=== PATIENT | female | born 1975 | race Caucasian/White ===

== ENCOUNTER 2018-10-06 10:05 | Observation (INO) | payer SELFPAY ==
[~2018-10-06] VITALS: Ht 167.6 cm; Wt 87.3 kg
[2018-10-06] VITALS (10 sets, daily range): BP systolic 118–144; BP diastolic 55–76
[2018-10-06 10:26] LABS: BASOPHILS % 0.3 % (0.0-1.0); EOSINOPHILS # (AUTO) 0.1 (0.0-0.4); EOSINOPHILS % 1.7 % (0.0-6.0); HEMATOCRIT 23.3 % (34.2-44.1); LYMPHOCYTES # (AUTO) 1.1 (1.0-3.2); LYMPHOCYTES % 18.3 % (18.0-39.1); MEAN CORPUSCULAR HEMOGLOBIN 17.8 pg (28-32); MONOCYTES # (AUTO) 0.3 (0.2-0.8); MONOCYTES % 5.4 % (4.4-11.3); NEUTROPHILS # (AUTO) 4.4 (2.1-6.9); PLATELET COUNT 166 x10e3/uL (140-360); RED BLOOD COUNT 3.53 x10e6/uL (3.6-5.1); RED CELL DISTRIBUTION WIDTH 26.5 % (11.7-14.4)
[2018-10-06 10:29] LABS: HEMOGLOBIN 6.3 g/dL (12.0-16.0)
[2018-10-06 10:35] LABS: BILIRUBIN,URINE NEGATIVE (NEGATIVE); CLARITY,URINE SL CLOUDY (CLEAR); COLOR,URINE YELLOW (YELLOW); KETONES,URINE NEGATIVE (NEGATIVE); LEUKOCYTE ESTERASE ,URINE TRACE (NEGATIVE); NITRITE,URINE NEGATIVE (NEGATIVE); PROTEIN,URINE DIPSTICK NEGATIVE (NEGATIVE); URINE UROBILINOGEN 0.2 mg/dL (0.2 - 1)
[2018-10-06 10:44] LABS: PREGNANCY TEST, URINE NEGATIVE (NEGATIVE)
[2018-10-06] MEDS ORDERED: ENALAPRILAT IV INJ 1.25 MG/ML VIAL IV PRN (10:45)
[2018-10-06] MEDS ORDERED: FUROSEMIDE INJ 10 MG/ML 2 ML VIAL IV ONE ×2 (10:45→16:30)
[2018-10-06] MEDS ORDERED: DIPHENHYDRAMINE HCL INJ 50 MG/ML VIAL IV ONE (10:45)
[2018-10-06] MEDS ORDERED: CLONIDINE HCL 0.1 MG TAB PO PRN (10:45)
[2018-10-06] MEDS ORDERED: ONDANSETRON HCL INJ 2MG/ML 2ML 2 MG/ML VIAL IV PRN (10:45)
[2018-10-06] MEDS ORDERED: DIPHENHYDRAMINE HCL INJ 50 MG/ML VIAL IV PRN (10:45)
[2018-10-06 10:47] LABS: BACTERIA,URINE MANY /HPF
[2018-10-06 10:48] LABS: ALANINE AMINOTRANSFERASE 11 IU/L (0-55); ALBUMIN 3.4 g/dL (3.5-5.0); ALBUMIN/GLOBULIN RATIO 0.9 (0.8-2.0); ALKALINE PHOSPHATASE 58 IU/L (40-150); BLOOD UREA NITROGEN 6 mg/dL (7-26); BUN/CREATININE RATIO 10 (6-25); CALCIUM 8.4 mg/dL (8.4-10.2); CARBON DIOXIDE 20 mmol/L (22-29); CHLORIDE 108 mmol/L (98-107); CREATININE, SERUM 0.63 mg/dL (0.57-1.11); EST GLOMERULAR FILTRATION RATE > 60 ML/MIN (60-); GLUCOSE 112 mg/dL (74-118); SODIUM 137 mmol/L (136-145)
[2018-10-06 10:48] LABS: AMORPHOUS SEDIMENT,URINE FEW (FEW); EPITHELIAL CELLS,URINE MANY /LPF
[2018-10-06 11:07] LABS: % IRON SATURATION 2 % (15-50); IRON 13 ug/dL (50-170); TOTAL IRON BINDING CAPACITY 533 ug/dL (261-478); TRANSFERRIN 381 mg/dL (180-382)
[2018-10-06] MEDS ORDERED: ACETAMINOPHEN 325 MG TAB PO ONE (11:30)
--- NOTE | 2018-10-06 11:35 | NUR ---
RECEIVED PT FROM ER. [facility]. BED IS AT THE LOWEST POSITION AND LOCKED. CALL LIGHT WITH IN EASY REACH. INSTRUCTED PT TO USE CALL LIGHT FOR ANY NEEDS. PT DENIES NEEDS AT THIS TIME.
[2018-10-06 11:36] LABS: FERRITIN < 1.00 ng/mL (4.63-204.00)
[2018-10-06 11:42] LABS: ELLIPTOCYTE, RBC SLIGHT; HYPOCHROMASIA MODERATE; OVALOCYTES FEW; PLATELET ESTIMATE ADEQUATE; PLATELET MORPHOLOGY COMMENT NORMAL; POLYCHROMASIA FEW; TEAR DROP CELLS FEW
[2018-10-06 11:43] LABS: RBC MORPHOLOGY COMMENT ABNORMAL
--- NOTE | 2018-10-06 11:57 | NUR ---
CAMERON BUCK AND INFORMED PT STATUS.
--- NOTE | 2018-10-06 12:00 | NUR ---
PER THE PT, SHE IS NOT TAKING ANY HOME MEDS.
[2018-10-06] MEDS: SODIUM CHLORIDE 0.9% 1000ML 1,000 ML IV SCH ×2 (12:11→23:52)
[2018-10-06] MEDS ORDERED: SODIUM CHLORIDE 0.9% 250ML 250 ML ONE ×2 (13:20→22:17)
--- NOTE | 2018-10-06 13:25 | NUR ---
BLOOD TRANSFUSION STARTED. INFORMED CONSENT SIGNED BY THE PT. 2 RN'S VERIFIED THE TRANSFUSION. PT VERBALIZED UNDERSTANDING. PT DENIES NEEDS AT THIS TIME.
--- NOTE | 2018-10-06 15:50 | NUR ---
BLOOD TRANSFUSION COMPLETED. PT IS AAOX4. NO DISTRESS OR REACTIONS NOTED. PT DENIES NEEDS AT THIS TIME.
--- NOTE | 2018-10-06 16:00 | NUR ---
DR. BUCK AT BEDSIDE TO SEE THE PT.
--- NOTE | 2018-10-06 17:15 | History and Physical ---
CHIEF COMPLAINT: The patient was found to have extremely low hemoglobin in office blood test 2 days back. HISTORY OF PRESENT ILLNESS: A 43-year-old pleasant female with past medical history of no significant medical problems, was admitted at [facility] this morning with above complaints. The patient was seen in my office for the first time last week for a routine checkup. The patient had a routine blood test done, which showed hemoglobin of 6.0 and hence the patient was advised to go to ER. The patient came to the emergency room this morning. The patient was found to have repeat hemoglobin of 6.3, admitted to hospital for further care and treatment. Complains of fatigue, tiredness for last few months. Complains of heavy menstrual cycles for last 12 years. No chest pain. No shortness of breath. No nausea, vomiting, or diarrhea. No abdominal pain. No loss of consciousness. No palpitations. No headaches. No hematemesis. No melena. No hematuria. No dysuria. No fever. No cough. No witnessed seizures. PAST MEDICAL HISTORY: 1. Chronic low back pain. 2. Scoliosis. MEDICATIONS: None. ALLERGIES: LYRICA. SOCIAL HISTORY: No smoking. No alcohol. No illicit drug use. FAMILY HISTORY: Noncontributory. REVIEW OF SYSTEMS: As per HPI. PHYSICAL EXAMINATION: GENERAL: The patient is alert, awake, and oriented x3, in no apparent distress, lying in bed. VITAL SIGNS: Temperature is 98, pulse rate is 70 per minute, respiratory rate is 18 per minute, blood pressure is 126/60, and saturation is 100%. No cyanosis. No icterus. Pallor plus. HEENT: Normocephalic, atraumatic. PERRLA plus. NECK: Soft, supple. No JVD. No carotid bruit. No lymphadenopathy. LUNGS: Air entry bilaterally equal. HEART: S1 and S2 present. No murmur, gallop, or rub. ABDOMEN: Soft, nontender. Bowel sounds plus. COMMISSIONING SPECIALIST: Alert, awake, and oriented x3. Moves extremities. No focal deficits. LABORATORY DATA: White count of 5.9, hemoglobin 6.3, hematocrit 23.3, platelets 156. Sodium 137, potassium 4.0, chloride 108, bicarb 20, BUN 6, creatinine 0.6. LFTs are noted. Total iron 13. TIBC 533. Ferritin less than 1. Transferrin 381. HCG qualitative negative. ASSESSMENT: 1. Severe symptomatic iron deficiency anemia. 2. History of severe menorrhagia. PLAN: 1. Admit the patient to medical floor. 2. Transfuse 2 units of packed RBCs today. The patient already received 1 unit today. One unit of packed RBC pending. 3. Serial H and H. 4. Scientific Process Operator consult with Dr. Ramirez. 5. Hematology consult with Dr. Etienne. 6. Further care and treatment as per clinical course of the patient in the hospital. Discussed with the patient at length. MD BAO Sewell/RASHMI /[id number]
--- NOTE | 2018-10-06 17:30 | NUR ---
PAGED DR. MOTA. PER THE DR, START DECADRON AND INFED AFTER THE SECOND UNIT OF BLOOD TRANSFUSION.
[2018-10-06 17:32] LABS: BASOPHILS % 0.4 % (0.0-1.0); EOSINOPHILS # (AUTO) 0.1 (0.0-0.4); EOSINOPHILS % 1.6 % (0.0-6.0); HEMATOCRIT 25.5 % (34.2-44.1); HEMOGLOBIN 7.2 g/dL (12.0-16.0); LYMPHOCYTES # (AUTO) 1.2 (1.0-3.2); LYMPHOCYTES % 21.9 % (18.0-39.1); MEAN CORPUSCULAR HEMOGLOBIN 19.5 pg (28-32); MEAN CORPUSCULAR HGB CONC 28.2 g/dL (31-35); MEAN CORPUSCULAR VOLUME 68.9 fL (81-99); MONOCYTES # (AUTO) 0.4 (0.2-0.8); MONOCYTES % 6.9 % (4.4-11.3); NEUTROPHILS # (AUTO) 3.9 (2.1-6.9); NEUTROPHILS % 68.8 % (38.7-80.0); PLATELET COUNT 146 x10e3/uL (140-360); RED CELL DISTRIBUTION WIDTH 26.3 % (11.7-14.4)
[2018-10-06] MEDS: FAMOTIDINE 20 MG/2 ML VIAL IV SCH (17:53)
--- NOTE | 2018-10-06 17:55 | NUR ---
PT OFF UNIT FOR PROCEDURE IN SAFE CONDITION.
[2018-10-06] MEDS ORDERED: FAMOTIDINE 20 MG/2 ML VIAL IV ONE (17:56)
[2018-10-06] MEDS ORDERED: DEXAMETHASONE PHOS 10MG INJ 20 MG in SODIUM CHLORIDE 0.9% 50ML 50 ML IV ONE (18:00)
[2018-10-06] MEDS ORDERED: FAMOTIDINE INJ 20 MG in SODIUM CHLORIDE 0.9% 50ML 50 ML IV ONE (18:00)
[2018-10-06] MEDS ORDERED: DIPHENHYDRAMINE HCL INJ 25 MG in SODIUM CHLORIDE 0.9% 50ML 50 ML IV ONE (18:30)
--- NOTE | 2018-10-06 18:30 | NUR ---
PT BACK TO UNIT AFTER PROCEDURE. PT DENIES NEEDS AT THIS TIME.
--- NOTE | 2018-10-06 18:55 | NUR ---
PAGED DR. GODDARD REGARDING PT ULTRA SOUND ORDER
--- NOTE | 2018-10-06 19:00 | NUR ---
BEDSIDE SHIFT REPORT GIVEN TO THE ASSISTANT PROFESSOR OF THEATER RN. PT DENIED FURTHER NEEDS.
[2018-10-06] MEDS ORDERED: IRON DEXTRAN INJ 50 MG in SODIUM CHLORIDE 0.9% 100 ML IV ONE (19:30)
[2018-10-06] MEDS ORDERED: IRON DEXTRAN INJ 500 MG in SODIUM CHLORIDE 0.9% 500ML 500 ML IV PRN (21:00)
--- NOTE | 2018-10-06 21:18 | Diagnostic Imaging Report ---
EXAM: CT Abdomen and Pelvis WITH contrast INDICATION: Anemia COMPARISON: None. TECHNIQUE: Abdomen and pelvis were scanned utilizing a multidetector helical scanner from the lung base to the pubic symphysis after administration of IV contrast. Coronal and sagittal reformations were obtained. Routine protocol was performed. Scan was performed when during portal venous phase. IV CONTRAST: 100 mL of Isovue 370 ORAL CONTRAST: None COMPLICATIONS: None RADIATION DOSE: Total DLP: 728 mGy*cm Estimated effective dose: (DLP x 0.015 x size factor) mSv CTDIvol has been reviewed. It is below the limits set by the Radiation Protocol Committee (RPC). Dose modulation, iterative reconstruction, and/or weight based adjustment of the mA/kV was utilized to reduce the radiation dose to as low as reasonably achievable. FINDINGS: LINES and TUBES: None. LOWER THORAX: Unremarkable HEPATOBILIARY: No focal hepatic lesions. No biliary ductal dilation. GALLBLADDER: No radio-opaque stones or sludge. No wall thickening. Contracted. SPLEEN: No splenomegaly. PANCREAS: No focal masses or ductal dilatation. ADRENALS: No adrenal nodules KIDNEYS/URETERS: Kidneys enhance symmetrically. No hydronephrosis. No cystic or solid mass lesions. No stones. GI TRACT: No abnormal distention, wall thickening, or evidence of bowel obstruction. Ingested material occupies the stomach lumen. Colonic diverticulosis without diverticulitis. Appendix is normal. PELVIC ORGANS/BLADDER: Enlarged uterus with multiple fibroids, and slightly distorted endometrial stripe and possibly a 1.9 cm submucosal fibroid at the uterine fundus (series 300, image 78). Bilateral fallopian tube closure devices. No adnexal masses. LYMPH NODES: No lymphadenopathy. VESSELS: Unremarkable. PERITONEUM / RETROPERITONEUM: No free air or fluid. BONES: There are degenerative changes in the lumbar spine. SOFT TISSUES: There is a fat containing para-umbilical hernia. IMPRESSION: 1. Multi fibroid uterus, possibly with a submucosal fibroid. 2. Colonic diverticulosis without diverticulitis. Signed by: Kodi Landon DO on 10/06/2018 9:15 PM
[2018-10-06] MEDS: IBUPROFEN 400 MG TAB PO PRN (22:13)
--- NOTE | 2018-10-06 22:17 | Consultation ---
DATE OF CONSULTATION: HISTORY OF PRESENT ILLNESS: Thank you very much for asking me to see this 43-year-old, whom I had delivered her baby 12 years ago. She is complaining of heavy vaginal bleeding for the last 12 days, getting worse with irregular periods since she had her tubal ligation 12 years ago. Before her tubal ligation, she had been on control pills and was not complaining of heavy periods, however, now her periods are heavy with clots. She also complained of dysmenorrhea. PAST MEDICAL HISTORY: Not significant. PAST SURGICAL HISTORY: She had tubal ligation. SOCIAL HISTORY: Denies smoking, alcohol, or drug abuse. MEDICATIONS: She is on no medications. ALLERGIES: LYRICA. REVIEW OF SYSTEMS: She does not complain of bowel movement problem, urology problem, cerebrovascular, musculoskeletal, hematological, or dermatological problem. ASSESSMENT AND PLAN: A 43-year-old with heavy periods. We will proceed with having pelvic ultrasound, also thyroid function tests, hysteroscopy, dilation and curettage to rule out uterine cancer. Risks, benefits, and complications were all explained. We will schedule that tomorrow morning. Ramona Ramirez MD DD/RASHMI /[id number] cc: Mindi Abebe MD
--- NOTE | 2018-10-06 23:00 | NUR ---
STARTED 2ND BLOOD TRANSFUSION. VERIFIED BLOOD WITH 2ND NURSE. VITAL SIGN STABLE AT THIS TIME. NO ACUTE DISTRESS NOTED. NO SIGN AND SYMPTOM OF REACTION. CONTINUE TO MONITOR CLOSELY
[2018-10-07] VITALS: BP 144/84
--- NOTE | 2018-10-07 01:00 | NUR ---
BLOOD TRANSFUSION COMPLETED. NO S/S OF REACTION NOTED. VITAL SIGN STABLE AT THIS TIME. CONTINUE TO MONITOR CLOSELY
[2018-10-07 04:00] VITALS: BP 143/78
[2018-10-07 05:25] LABS: BASOPHILS % 0.2 % (0.0-1.0); HEMATOCRIT 31.6 % (34.2-44.1); HEMOGLOBIN 8.9 g/dL (12.0-16.0); LYMPHOCYTES # (AUTO) 0.4 (1.0-3.2); LYMPHOCYTES % 4.9 % (18.0-39.1); MEAN CORPUSCULAR HEMOGLOBIN 19.6 pg (28-32); MEAN CORPUSCULAR HGB CONC 28.2 g/dL (31-35); MEAN CORPUSCULAR VOLUME 69.6 fL (81-99); MONOCYTES % 0.5 % (4.4-11.3); NEUTROPHILS # (AUTO) 8.2 (2.1-6.9); NEUTROPHILS % 93.4 % (38.7-80.0); PLATELET COUNT 185 x10e3/uL (140-360); RED BLOOD COUNT 4.54 x10e6/uL (3.6-5.1); RED CELL DISTRIBUTION WIDTH 25.5 % (11.7-14.4)
[2018-10-07 05:47] LABS: ALANINE AMINOTRANSFERASE 12 IU/L (0-55); ALBUMIN 3.7 g/dL (3.5-5.0); ALBUMIN/GLOBULIN RATIO 0.9 (0.8-2.0); ALKALINE PHOSPHATASE 64 IU/L (40-150); ANION GAP 12.3 mmol/L (8-16); BLOOD UREA NITROGEN 8 mg/dL (7-26); BUN/CREATININE RATIO 11 (6-25); CALCIUM 9.3 mg/dL (8.4-10.2); CARBON DIOXIDE 20 mmol/L (22-29); CHLORIDE 106 mmol/L (98-107); EST GLOMERULAR FILTRATION RATE > 60 ML/MIN (60-); GLUCOSE 199 mg/dL (74-118); POTASSIUM 4.3 mmol/L (3.5-5.1); SODIUM 134 mmol/L (136-145)
--- NOTE | 2018-10-07 07:00 | NUR ---
BEDSIDE SHIFT REPORT FROM NIGHT RN. PT DENIES NEEDS AT THIS TIME.
[2018-10-07 07:01] LABS: BAND NEUTROPHILS % (MANUAL) 3 %; LYMPHOCYTES % (MANUAL) 2 % (19-48); NEUTROPHILS % (MANUAL) 94 % (40-74)
[2018-10-07 07:07] LABS: ANISOCYTOSIS SLIGHT; ELLIPTOCYTE, RBC SLIGHT; OVALOCYTES FEW; POIKILOCYTOSIS MODE
[2018-10-07 07:08] LABS: PLATELET ESTIMATE ADEQUATE; PLATELET MORPHOLOGY COMMENT FEW LARGE; POLYCHROMASIA FEW; RBC MORPHOLOGY COMMENT ABNORMAL
[2018-10-07 08:27] VITALS: BP 171/79
[2018-10-07] MEDS: FAMOTIDINE 20 MG/2 ML VIAL IV SCH ×2 (08:46→17:00)
[2018-10-07 09:00] VITALS: BP 171/79
--- NOTE | 2018-10-07 09:55 | Diagnostic Imaging Report ---
Exam: Pelvic ultrasound. History: Menorrhagia Comparison: CT abdomen and pelvis of 10/06/2018 Findings: Transabdominal sonographic evaluation of the pelvis. The uterus is anteverted in position, measuring 13.1 x 8.0 x 9.9cm. A left uterine intramural fibroid measures up to 3.7 x 3.1 x 2.7 cm. A submucosal fibroid measures 1.7 x 1.0 x 2.0 cm. Endometrial stripe thickness is 12 millimeters. The right ovary measures 2.7 x 2.0 x 2.7 cm and contains a 1.3 cm cystic structure, likely a follicle. The left ovary measures 2.9 x 1.6 x 2.2 cm and is normal in appearance. No pelvic free fluid. Impression: Left uterine 3.7 x 3.1 x 2.7 cm intramural fibroid and 1.7 x 1.0 x 2.0 cm submucosal fibroid. Signed by: Holger Bynum MD on 10/07/2018 9:52 AM
--- NOTE | 2018-10-07 10:46 | NUR ---
Pt out of room and no family at bedside. A card was left at the bedside to indicate a missed visit from a member of the Spiritual Care team and to inform the pt and family of the availability of a Bull Ladle Tender 24 hours a day/7 days a week. A laborer aquatic life will follow up as able.
--- NOTE | 2018-10-07 12:00 | NUR ---
RCD BED SIDE REPORT PT RESTING ON BED NO SIGNS OF ANY DISTRESS NOTED BED LOW AND LOCKED CALL LIGHT IN REACH
--- NOTE | 2018-10-07 13:00 | History and Physical ---
HISTORY OF PRESENT ILLNESS: Vanessa Uribe is a 43-year-old female referred to me for evaluation of anemia. No history of hematochezia. No history of melena. No history of hematuria, hematemesis, or hemoptysis. However, the patient claims after her last child 4 years back, the patient has been constantly bleeding much more so than previous times vaginal bleed. ALLERGIES: REPORTED PREGABALIN. MEDICATIONS: At this time consist of: 1. Sodium chloride. 2. Clonidine. 3. Diphenhydramine. 4. Ondansetron. 5. Ibuprofen. 6. Enalapril. SOCIAL HISTORY: Noncontributory. FAMILY HISTORY: Noncontributory. REVIEW OF SYSTEMS: HEENT: Normal. CARDIAC: History of hypertension. RESPIRATORY: Normal. GI: Normal. : Dysfunctional uterine bleed for the last 4 years. MUSCULOSKELETAL: Normal. SKIN AND BREASTS: Normal. NEUROENDOCRINE: Essentially normal. PHYSICAL EXAMINATION: GENERAL: A moderately-built female, anemic. NECK: No palpable adenopathy. HEART: Within normal limits. LUNGS: Clear. ABDOMEN: Soft. RECTAL AND VAGINAL: Deferred as Dr. Ramirez, Lacquer Polisher physician has been consulted. LABORATORY DATA: Investigations of interest, which has prompted this consultation shows hemoglobin of 6.3, hematocrit 23.3, low MCV of 66, low MCHC of 27, high RDW of 28.5, white count of 5900 with normal differential, retic response is only 1.4%. Chemistry shows sodium of 137, potassium 4.0, chloride is 108, CO2 of 20, BUN 6, creatinine 0.6, total protein 7.3, albumin 3.4, and globulin slightly high at 3.9. HCG is reported negative. IMAGING DATA: Imaging, which I had ordered consisting of CAT scan of the abdomen and pelvis reveals the patient to have multi-fibroid uterus with possibly a submucosal fibroid, colonic diverticulosis without diverticulitis. IMPRESSION: 1. Iron-deficiency anemia. 2. Hypoalbuminemia. 3. Dysfunctional uterine bleed. PLAN, COMMENTS, AND SUGGESTIONS: Apart from blood transfusion, which Dr. Abebe has ordered, I suggest the patient to be treated with INFeD. I will treat her as an outpatient with INFeD depending on her nomogram findings as to the quantity of INFeD in a month again, Lacquer Polisher consultation has been obtained. Since she is 43, I suggest the patient to have a colonoscopy baseline as [place] [employer], has decreased the age from 48 to 43. Hopefully, she is getting mammograms as routine. Thank you very much for allowing me to participate in management of this patient. MD MARICRUZ Ibarra/RASHMI /[id number] cc: MD Ramona Sewlel MD
[2018-10-07 13:12] VITALS: BP 127/73
[2018-10-07] MEDS: SODIUM CHLORIDE 0.9% 1000ML 1,000 ML IV SCH (13:12)
--- NOTE | 2018-10-07 13:26 | Operative Report ---
DATE OF PROCEDURE: SURGEON: Ramona Ramirez MD PREOPERATIVE DIAGNOSES: 1. Abnormal uterine bleeding. 2. Anemia. POSTOPERATIVE DIAGNOSES: 1. Abnormal uterine bleeding. 2. Anemia. PROCEDURES: 1. Hysteroscopy. 2. Dilation and curettage. 3. Hysteroscopic myomectomy. COMPLICATIONS: None. ESTIMATED BLOOD LOSS: Minimal. PROCEDURE IN DETAIL: The patient was taken to the OR. General anesthesia was induced. She was prepped and draped in a sterile fashion, placed in dorsal lithotomy position. After examination under anesthesia, uterus bulky, mobile. No adnexal masses. Cavity length measured about 12 cm. Weighted speculum was placed inside the vagina. Cervix was already dilated and hysteroscope was introduced without dilatation and visualization of the pelvis showed posterior submucous fibroid. Using the dense tissue mini TruClear ai, the fibroid was morcellated and suctioned out of the uterus, the stage was smooth. Hysteroscope was removed. Sharp curettings were obtained and sent to pathology. The patient tolerated the procedure well. Lap, needle count was correct x2 at the end of the procedure. Ramona Ramirez MD DD/CHASEL /[id number]
[2018-10-07] MEDS: IBUPROFEN 400 MG TAB PO PRN ×2 (14:26→19:59)
--- NOTE | 2018-10-07 15:45 | NUR ---
Visit made by the Spiritual Care Department Pastoral Visitor, Madison Gutierrez. PV provided pastoral presence, prayer, hospitality, and supportive listening. Pastoral Visitor informed pt/family of the scope of Board Writer Services and availability. GOLDEN CAMACHO Supervisor Soldering Spiritual Care Department O: [phone] Pager: [phone] ([phone] calling from)
[2018-10-07 17:11] VITALS: BP 121/79
[2018-10-07] MEDS ORDERED: FENTANYL CITRATE/PF 100MCG/2 ML INJ ONE (18:36)
[2018-10-07] MEDS ORDERED: MIDAZOLAM HCL 2 MG/2 ML VIAL ONE (18:36)
--- NOTE | 2018-10-07 18:36 | NUR ---
PT REQUESTED TO GO HOME PAGED DR BUCK
--- NOTE | 2018-10-07 18:42 | NUR ---
PT RESTING ON BED BED SIDE REPORT GIVEN TO ONCOMING NURSE
--- NOTE | 2018-10-07 18:57 | NUR ---
DR BUCK RETURNED CALL HE SAID IF IT OK WITH DR ANDREWS PT CAN GO HOME SO PAGED DR ANDREWS TO GET DISCHARGE APPROVAL
[2018-10-07] MEDS ORDERED: PROPOFOL IV EMULSION 10 MG/ML 20 ML VIAL ONE (19:13)
[2018-10-07] MEDS ORDERED: DEXAMETHASONE SOD PHOS INJ 4 MG/ML VIAL ONE (19:13)
[2018-10-07] MEDS ORDERED: LIDOCAINE HCL 2% LOCAL INJ 5 ML SDV VIAL INJ ONE (19:13)
[2018-10-07] MEDS ORDERED: ONDANSETRON HCL INJ 2MG/ML 2ML 2 MG/ML VIAL ONE (19:13)
[2018-10-07] MEDS ORDERED: SEVOFLURANE INHAL SOLN 250 ML PEN BTL ONE (19:13)
--- NOTE | 2018-10-07 19:45 | NUR ---
DR REGAN CALLED BACK AND GAVE ORDER TO DISCHARGE PATIENT
--- NOTE | 2018-10-07 20:12 | NUR ---
DISCHARGE PATIENT HOME WITH ALL BELONGINGS. VITAL SIGN STABLE AT THIS TIME.
== END 2018-10-07 20:57 | disposition home or self-care (01) ==
LOC: ER 10:05 → ERHOLD 10:55 → MED/SURG2 11:37
PROVIDERS: ADMIT Internal Medicine; ATTEND Internal Medicine
DX: D50.9 Iron deficiency anemia, unspecified (principal); E88.09 Other disorders of plasma-protein metabolism, not elsewhere classified; N93.8 Other specified abnormal uterine and vaginal bleeding; D25.9 Leiomyoma of uterus, unspecified
CPT/HCPCS: 36415 ×2; 58558; 74177; 76856; 80053 ×2; 81001; 81025; 82728; 82948; 83540; 84443; 84466; 84481; 84702; 85025 ×2; 85045; 86850; 86900; 86920; 88305; 99284; G0378 ×2; J1100 ×2; J1200; J1750; J1940; J2001; J2250; J2405; J2704; J3010; J7030; J7040; J7050 ×2; P9016